=== PATIENT | female | born 1995 | race Caucasian/White ===

== ENCOUNTER 2019-03-27 19:13 | Emergency (ER) | payer OTHER ==
[~2019-03-27] VITALS: Ht 160 cm; Wt 94.9 kg
[2019-03-27 20:09] VITALS: BP 132/63; Ht 160 cm; Wt 94.9 kg
== END 2019-03-27 23:15 | disposition home or self-care (01) ==
LOC: ED 19:13
DX: M75.51 Bursitis of right shoulder (principal); Z88.1 Allergy status to other antibiotic agents
CPT/HCPCS: J1885

== ENCOUNTER 2019-08-26 11:37 | Emergency (ER) | payer OTHER, SELFPAY ==
[~2019-08-26] VITALS: Ht 160 cm; Wt 94.8 kg
[2019-08-26 11:37] VITALS: BP 123/73; Ht 160 cm; Wt 94.8 kg
== END 2019-08-26 12:30 | disposition home or self-care (01) ==
LOC: ED 11:37
DX: R68.83 Chills (without fever) (principal); M79.10 Myalgia, unspecified site; R43.8 Other disturbances of smell and taste; R09.89 Other specified symptoms and signs involving the circulatory and respiratory systems; R11.0 Nausea; R19.7 Diarrhea, unspecified; E66.9 Obesity, unspecified; Z20.828 Contact with and (suspected) exposure to other viral communicable diseases; Z88.1 Allergy status to other antibiotic agents; Z68.37 Body mass index [BMI] 37.0-37.9, adult
CPT/HCPCS: U0003-CS

== ENCOUNTER 2019-10-10 11:25 | Emergency (ER) | payer OTHER ==
[~2019-10-10] VITALS: Ht 160 cm; Wt 93.0 kg
[2019-10-10 11:33] VITALS: Ht 160 cm; Wt 93.0 kg
[2019-10-10 12:29] LABS: BASOPHIL % 0.4 % (0-2); PLATELET COUNT 300 x10^3mcL (130-400); RED CELL DISTRIBUTION WIDTH 13.6 % (11.5-14.5)
[2019-10-10 12:31] LABS: CALCIUM 8.6 mg/dL (8.5-10.1); CARBON DIOXIDE 27.2 mmol/L (21-32); CHLORIDE SERUM 105 mmol/L (98-107); CREATININE SERUM 0.6 mg/dL (0.6-1.0); GFR1 > 60 mL/min; GLUCOSE SERUM 101 mg/dL (74-106); POTASSIUM SERUM 4.2 mmol/L (3.5-5.1); SODIUM SERUM 139 mmol/L (136-145)
[2019-10-10 12:35] LABS: ALBUMIN 3.8 g/dL (3.4-5.0); ALKALINE PHOSPHATASE 76 U/L (46-116); ALT/SGPT 36 U/L (14-59); AST/SGOT 23 U/L (15-37); BILIRUBIN TOTAL 0.2 mg/dL (0.20-1.00); LIPASE 84 IU/L (73-393); TOTAL PROTEIN, SERUM 7.8 g/dL (6.4-8.2)
[2019-10-10 14:08] VITALS: BP 126/82
== END 2019-10-10 14:08 | disposition home or self-care (01) ==
LOC: ED 11:25
PROVIDERS: Emergency Medicine
DX: U07.1 COVID-19 (principal); N83.8 Other noninflammatory disorders of ovary, fallopian tube and broad ligament; Z88.1 Allergy status to other antibiotic agents
CPT/HCPCS: J2270; J2405; J7030